=== PATIENT | male | born 1990 | race American Indian/Alaskan Native ===

== ENCOUNTER 2017-06-02 08:36 | Day surgery (SDC) | payer OTHER ==
[~2017-06-02 08:36] MED LIST: ANCEF/STERILE WATER 2 GM/20 ML IV NR; LACTATED RINGERS 1,000 ML IV SCH; PEPCID PO NR; VERSED IV NR
[2017-06-02] MEDS ORDERED: DILAUDID IV PRN (09:10)
--- NOTE | 2017-06-02 09:11 | Anesthesia Day of Surgery ---
Anesthesia Day of Surgery - Day of Surgery Patient Examined: Yes Patient H&P Reviewed: Yes Patient is NPO: Yes
--- NOTE | 2017-06-02 09:16 | Anesthesia Consultation ---
Anesthesia Consult and Med Hx Date of service: 06/02/17 - Airway Anesthetic Teeth Evaluation: Good ROM Head & Neck: Adequate Mental/Hyoid Distance: Adequate Mallampati Class: Class II Intubation Access Assessment: Probably Good - Pulmonary Exam CTA: Yes - Cardiac Exam Cardiac Exam: RRR - Pre-Operative Health Status ASA Pre-Surgery Classification: ASA1 Proposed Anesthetic Plan: General - Pulmonary Hx Smoking: Yes (QUIT 1 YR AGO) Hx Sleep Apnea: No ([facility]RIS PRE SCREEN LOW RISK) - Cardiovascular System Hx Hypertension: No - Gastrointestinal Hx Gastroesophageal Reflux Disease: Yes - Other Systems Hx Cancer: No
[2017-06-02] MEDS ORDERED: NACL BACTERIOSTATIC INFILTRATI ONE (09:23)
[2017-06-02 09:56] LABS: Basophils % (Auto) 1.3 % (0.0-1.8); Hematocrit 49.5 % (35.5-45.6); Hemoglobin 17.3 gm/dl (11.8-15.2); Mean Corpuscular HGB Conc 35 % (32-34); Mean Corpuscular Hemoglobin 35 pg (28-32); Mean Corpuscular Volume 99 fl (84-94); Platelet Count 272 K/mm3 (140-440); Red Blood Count 5.02 M/mm3 (3.65-5.03); Red Cell Distribution Width 12.4 % (13.2-15.2); White Blood Count 4.7 K/mm3 (4.5-11.0)
[2017-06-02] MEDS ORDERED: DIPRIVAN 10 MG/ML IV ONE (09:59)
[2017-06-02] MEDS ORDERED: ROBINUL ONE ×2 (09:59)
[2017-06-02] MEDS ORDERED: ZOFRAN ONE (09:59)
[2017-06-02] MEDS ORDERED: DECADRON ONE (09:59)
[2017-06-02] MEDS ORDERED: ZEMURON IV ONE (09:59)
[2017-06-02] MEDS ORDERED: SUBLIMAZE ONE (09:59)
[2017-06-02] MEDS ORDERED: ZOFRAN IV PRN (10:00)
[2017-06-02] MEDS ORDERED: NEOSTIGMINE ONE (10:00)
[2017-06-02] MEDS ORDERED: PERCOCET 5/325 PO PRN ×2 (10:00→15:30)
[2017-06-02] MEDS ORDERED: XYLOCAINE MPF 2% ONE (10:02)
[2017-06-02 10:13] LABS: Albumin 4.4 g/dL (3.9-5); Albumin/Globulin Ratio 1.2 %; Blood Urea Nitrogen 14 mg/dL (9-20); Calcium 8.9 mg/dL (8.4-10.2); Carbon Dioxide 27 mmol/L (22-30); Glucose 81 mg/dL (75-100); Sodium 140 mmol/L (137-145); Total Protein 8.1 g/dL (6.3-8.2)
[2017-06-02 10:18] LABS: Anion Gap 17 mmol/L
[2017-06-02 10:19] LABS: Alanine Aminotransferase 12 units/L (7-56); Alkaline Phosphatase 47 units/L (35-129); Potassium 5.6 mmol/L (3.6-5.0)
[2017-06-02] MEDS ORDERED: MARCAINE 0.5% 30 ML INFILTRATI ONE (10:21)
[2017-06-02] MEDS ORDERED: LACTATED RINGERS 1,000 ML ONE (11:04)
[2017-06-02] MEDS ORDERED: DILAUDID ONE (11:05)
[2017-06-02] MEDS ORDERED: MARCAINE 0.5% INFILTRATI ONE (11:45)
[2017-06-02] MEDS ORDERED: NACL 0.9% IR ONE (11:45)
--- NOTE | 2017-06-02 11:57 | Discharge Summary ---
Short Stay Discharge Plan Activity: advance as tolerated Weight Bearing Status: Full Weight Bearing Diet: regular Wound: per your surgeon's advice
[2017-06-02] MEDS ORDERED: DEMEROL IV PRN (12:20)
[2017-06-02] MEDS ORDERED: DEMEROL ONE (12:28)
--- NOTE | 2017-06-02 14:48 | Post Anesthesia Evaluation ---
- Post Anesthesia Evaluation Patient Participated: Yes Airway Patent: Yes Stable Respiratory Function: Yes Nausea/Vomiting: No Temp > 96.8F: Yes Pain Manageable: Yes Adequeate Hydration: Yes Anesthesia Complications: No Block Receding Appropriately: Not Applicable Patient on Ventilator: No
--- NOTE | 2017-06-02 14:57 | Operative Report ---
PREOPERATIVE DIAGNOSIS: Huge right scrotal hernia. POSTOPERATIVE DIAGNOSIS: Huge right scrotal hernia. PROCEDURE: Repair of a huge right inguinal hernia down to the scrotum with application of a Marlex mesh graft. ANESTHESIA: General. BLOOD LOSS: Minimal. FINDINGS: The patient had a huge hernia that measured at least about 20 x 10 x 10 cm. The neck is about 3 x 3 cm. I was able to go all the way to the neck. At which point, I was able to put two suture ligatures of 2-0 Ethibond. The repair was done in the usual fashion with a keyhole Marlex mesh graft. This was tacked to the fascia with use of 2-0 nylon all around. I left may be about 2 cm defect in the area of the exit of the spermatic cord. DESCRIPTION OF PROCEDURE: With the patient in supine position, prepped and draped in usual fashion, I made an incision transversely set in the inguinal area on the right side deep subcutaneous tissue all the way down to fascia, this was incised. I was able to isolate the spermatic cord that was very big, about 3 x 3 cm in the usual fashion with a Wiley drain, then I opened the sac, at which point a loop of small intestine was stuck there. This was delivered within the abdominal cavity. Then, the sac was removed in toto, dissecting it completely from the spermatic cord structures. Then at the neck area, I was able to insert 2 suture ligatures of #0 Ethibond. Then, the extensive tissue was sent to pathology. The repair was performed using the same sutures interruptedly between the conjoint tendon medially and the reflected part of the ilioinguinal ligament laterally all the way to beyond the defect of the spermatic cord. Then, reinforcement of a keyhole Marlex mesh graft was applied all the way from the apex of the inguinal triangle with a continuous stitch of 2-[address] around leaving a defect for the spermatic cord itself. We were well satisfied. Then, I used 3-0 Vicryl to close the fascia interruptedly as well as the subcutaneous tissue and skin korin. The patient was then transferred to the recovery room in good condition. JOB# [id number] FREDERICK/ZOYA
[2017-06-02 16:29] VITALS: BP 145/91
== END 2017-06-02 16:20 ==
LOC: OR 08:36 → EEVIPCON 10:30 → OR 16:20
PROVIDERS: ATTEND Surgery
DX: K40.90 Unilateral inguinal hernia, without obstruction or gangrene, not specified as recurrent (principal); K21.9 Gastro-esophageal reflux disease without esophagitis; Z87.891 Personal history of nicotine dependence
CPT/HCPCS: 36415; 49505; 80053; 85025; 88302; C1726; C1781; J0690; J1100; J1170; J2175; J2250; J2405; J2704; J2710; J3010; J7120